=== PATIENT | male | born 2000 | race Two or more races ===

== ENCOUNTER 2018-07-06 12:44 | Emergency (ER) | payer SELFPAY ==
[~2018-07-06] VITALS: Ht 182.9 cm; Wt 77.1 kg
[2018-07-06 12:51] VITALS: BP 137/77; Ht 182.9 cm; Wt 77.1 kg
== END 2018-07-06 14:26 | disposition home or self-care (01) ==
LOC: ED 12:44
DX: S93.401A Sprain of unspecified ligament of right ankle, initial encounter (principal); X50.1XXA Overexertion from prolonged static or awkward postures, initial encounter; Y93.51 Activity, roller skating (inline) and skateboarding; Y92.89 Other specified places as the place of occurrence of the external cause; Y99.8 Other external cause status